=== PATIENT | female | born 1980 | race Caucasian/White ===

== ENCOUNTER 2023-11-25 12:18 | Emergency (ER) | payer OTHER, SELFPAY ==
[2023-11-25] VITALS (11 sets, daily range): BP systolic 100–121; BP diastolic 73–77; PULSE 74–83; TEMP 36.7; O2SAT 100; BMI 20.8
--- NOTE | 2023-11-25 12:30 | ECG_ITS ---
[facility] Test Date: 2023-11-25 [facility] Department: Room: - Gender: Female Hand Ironer: : 1980 Requested By: Order Number: [id number] Reading MD: AMOS CASAS Measurements Intervals [place] Rate: 81 P: 39 VA: 104 QRS: 75 QRSD: 78 T: 60 QT: 340 QTc: 377 Interpretive Statements 1100 Sinus rhythm 2210 Short VA interval 9150 abnormal ECG No previous ECG available for comparison Electronically Signed On 11-26-2023 7:40:30 EDT by AMOS CASAS
--- NOTE | 2023-11-25 12:36 | ED.GENADUL1 ---
HPI HPI - General Adult General Chief complaint: Weakness Stated complaint: GENERAL WEAKNESS Time Seen by Provider: 11/25/23 12:35 History of Present Illness HPI narrative: Patient is a All systems are negative except as noted/marked. All systems reviewed and otherwise negative. Nurses note and vital signs reviewed and patient is not hypoxic. General: The patient appears well and in no apparent distress. Patient is resting comfortably on cart. Patient is not toxic, lethargic, or listless Skin: Warm, dry, no pallor noted. There is no rash noted. No petechiae, purpura. Head: Normocephalic, atraumatic Eye: Normal conjunctiva, no drainage, EOMI. PERRL Ears, Nose, Mouth, and Throat: oral mucosa is moist. Nares patent. Mouth without vesicles. Cardiovascular: Regular Rate and Rhythm, no murmur, gallop, rub Respiratory: Patient is in no distress, no accessory muscle use, lungs are clear to auscultation, no wheezing, rales or rhonchi Back: non-tender, no CVA tenderness bilaterally to percussion. No CT LS midline pain GI: no tenderness to palpation, no masses appreciated. No rebound, guarding, or rigidity noted. No distention Musculoskeletal: Patient has full range of motion of all of the extremities, no motor, sensory, or focal neurological deficits Neurological: A&O x4, normal speech Psychiatric: Cooperative Related Data Previous Rx's ?Medication ?Instructions ?Recorded hydroxyzine HCl 50 mg tablet 50 mg PO TID PRN itching #10 tabs 11/25/23 mupirocin 2 % topical ointment 1 applic topical TID 14 days #15 11/25/23 grams Allergies Allergy/AdvReac Type Severity Reaction Status Date / Time Penicillins Allergy Severe Verified 11/25/23 12:27 Sulfa (Sulfonamide Allergy Severe Verified 11/25/23 12:27 Antibiotics) Opioid HPI Opioid Management Most Recent Opioid Data: No Data to Display Exam Constitutional Vital Signs, click to edit/add: Last Vital Signs Temp 98.1 F 11/25/23 12:22 Pulse 78 11/25/23 13:28 Resp 20 11/25/23 13:28 BP 121/74 11/25/23 13:57 Pulse Ox 100 11/25/23 12:36 O2 Del Method Room Air 11/25/23 12:36 Course Vital Signs Vital signs: Vital Signs Temperature 98.1 F 11/25/23 12:22 Pulse Rate 83 11/25/23 12:22 Respiratory Rate 16 11/25/23 12:22 Blood Pressure 105/73 11/25/23 12:22 Pulse Oximetry 100 11/25/23 12:22 Oxygen Delivery Method Room Air 11/25/23 12:22 Temperature 98.1 F 11/25/23 12:22 Pulse Rate 78 11/25/23 13:28 Respiratory Rate 20 11/25/23 13:28 Blood Pressure 121/74 11/25/23 13:57 Pulse Oximetry 100 11/25/23 12:36 Oxygen Delivery Method Room Air 11/25/23 12:36 Medical Decision Making MDM Narrative Medical decision making narrative: EKG interpretation. Normal sinus rhythm 81 beats a minute. Normal axis deviation. No acute ST elevation, no acute ectopy. Q waves noted ECG Data Attestation: I personally reviewed and interpreted this ECG as follows: (EKG interpretation. Normal sinus rhythm at 81 beats a minute. Normal axis deviation. No acute ST elevation, no acute ectopy. QTc of 377) Discharge Plan Discharge Stand Alone Forms: Portal Instructions Chief Complaint: Weakness Clinical Impression: Rash and nonspecific skin eruption, Irritation, nose Patient Disposition: Home, Self-Care Time of Disposition Decision: 13:50 Condition: Fair Prescriptions / Home Meds: New mupirocin 2 % ointment 1 applic topical TID 14 Days Qty: 15 0RF hydroxyzine HCl 50 mg tablet 50 mg PO TID PRN (Reason: itching) Qty: 10 0RF Print Language: Kinyarwanda Instructions: MRSA (Methicillin-Resistant Staphylococcus Aureus) (ED), Dermatitis (ED) Additional Instructions: Continue using your antitch/rash cream. Start using Pepcid 20 mg twice a day. Start using Vistaril/hydroxyzine/Atarax to 3 times a day as needed for rash, agitation or burning. Follow-up with your PCP Use antibiotic ointment 3 times a day for the next 1 to 2 weeks to the right nostril Referrals: Physician,Non-Staff, MD [Primary Care Provider] - 1 week Discharge Date/Time: 11/25/23 14:04
== END 2023-11-25 14:04 | disposition home or self-care (01) ==
PROVIDERS: Emergency Provider Emergency Medicine
DX: R21 Rash and other nonspecific skin eruption (principal); J34.9 Unspecified disorder of nose and nasal sinuses
CPT/HCPCS: 93005; 99283

== ENCOUNTER 2024-05-15 16:27 | Emergency (ER) | payer OTHER, SELFPAY ==
[2024-05-15 16:30] VITALS: BP 105/67; PULSE 89; TEMP 37.1; O2SAT 99; BMI 21.2
--- NOTE | 2024-05-15 16:45 | CT_ITS ---
The [address] [address] Patient Name: NEVA FRANCO MRN: [facility]:[id number] date: 1980 Sex: F Assigned Patient Location: ER Current Patient Location: ER Accession/Order Number: [id number] Exam Date: 05/15/2024 16:54 Report Date: 05/15/2024 17:42 At the request of: GASTON VALDEZ Procedure: CT abdomen pelvis wo con CT ABDOMEN/PELVIS WITHOUT IV CONTRAST. INDICATION: Right abd, flank pain COMPARISON: There are no other studies available for comparison. TECHNIQUE: Contiguous axial images were obtained from the lung bases to the pelvic floor without intravenous or oral contrast. Coronal and sagittal reformations are provided. FINDINGS: LOWER LUNGS: Clear. LIVER/BILIARY TREE: No discrete lesion. No intrahepatic ductal dilatation. GALLBLADDER: Status post cholecystectomy. CBD: Normal CBD. SPLEEN: Normal in size. PANCREAS: No appreciable peripancreatic fluid. No pancreatic ductal dilatation. No discrete lesion. ADRENALS: Normal. KIDNEYS: No hydronephrosis. No radiopaque calculus. STOMACH AND BOWEL: Stomach is unremarkable. No dilated bowel loops. No bowel wall thickening. APPENDIX: Not well-visualized. PERITONEAL CAVITY: There is trace free fluid in the pelvis.. No fat stranding. ABDOMINAL WALL: No subcutaneous stranding. No subcutaneous fluid collection. LYMPH NODES: No mesenteric or retroperitoneal lymphadenopathy by CT criteria. ABDOMINAL AORTA: No aneurysm. PELVIS: No acute abnormality. Status post hysterectomy. MUSCULOSKELETAL: No acute osseous abnormality. CT/CT abdomen pelvis wo con IMPRESSION: No acute abnormality in the abdomen or pelvis. No obstructive uropathy. Electronically authenticated by: FEDE PASTRANA Date: 05/15/2024 17:42
--- NOTE | 2024-05-15 16:45 | ED.ABDPAIN1 ---
HPI - Abdominal Pain General Chief Complaint: Abdominal Pain Stated Complaint: Abdominal Pain Time Seen by Provider: 05/15/24 16:44 Source: patient Mode of arrival: walk-in History of Present Illness HPI narrative: 44 year old female presents to the ED for right abd and flank pain, pressure with urination, nausea. Onset was 2-3 days ago. Denies fever, chills, emesis, dysuria, hematuria. Reports hx kidney stones, UTIs. She has had an appendectomy, cholecystectomy, hysterectomy. Reports previous surgery on the right ureter. Related Data Home Medications ?Medication ?Instructions ?Recorded ?Confirmed azelastine 0.05 % eye drops 1 drp ophthalmic (eye) BID 05/15/24 05/15/24 clobetasol 0.05 % topical ointment 1 applic topical BID 05/15/24 05/15/24 estradiol 0.075 mg/24 hr 1 patch transdermal .twice a wk 05/15/24 05/15/24 semiweekly transdermal patch fluoride (sodium) 1.1 % dental 1 applic dental BID 05/15/24 05/15/24 cream (Denta 5000 Plus) montelukast 10 mg tablet 10 mg PO DAILY 05/15/24 05/15/24 tacrolimus 0.1 % topical ointment 1 applic topical BID 05/15/24 05/15/24 Allergies Allergy/AdvReac Type Severity Reaction Status Date / Time Penicillins Allergy Severe Verified 11/25/23 12:27 Sulfa (Sulfonamide Allergy Severe Verified 11/25/23 12:27 Antibiotics) Review of Systems ROS Constitutional Denies: fever or chills Cardiovascular Denies: chest pain Respiratory Denies: shortness of breath Gastrointestinal Reports: abdominal pain and nausea; Denies: vomiting or diarrhea Genitourinary Denies: painful urination, urinary frequency, urinary urgency or blood in urine Musculoskeletal Reports: back pain; Denies: neck pain Integumentary/Breast Denies: rash Neurological Denies: numbness in extremities or weakness in extremities PFSH PFSH Social History Little interest or pleasure in doing things: not at all Feeling down, depressed, or hopeless: not at all Exam Constitutional Vital Signs, click to edit/add: Last Vital Signs Temp 98.7 F 05/15/24 16:30 Pulse 89 05/15/24 16:30 Resp 18 05/15/24 16:30 BP 105/67 05/15/24 16:30 Pulse Ox 99 05/15/24 16:30 Common normals: no apparent distress and oriented x3 General appearance: cooperative Eye Common normals: conjunctivae normal and no scleral icterus Neck & C-Spine Common normals: supple Respiratory Common normals: normal respiratory effort Effort & inspection: able to speak in complete sentences and symmetric chest movement Cardio Common normals: regular rate and regular rhythm GI Common normals: Normal to inspection, nondistended, normoactive bowel sounds present and soft to palpation Palpation: tender Details: RLQ Common normals: no CVA tenderness Neuro Common normals: oriented x3 and moves all extremities Sensorium/orientation: awake and alert Speech: speech normal Course Vital Signs Vital signs: Vital Signs Temperature 98.7 F 05/15/24 16:30 Pulse Rate 89 05/15/24 16:30 Respiratory Rate 18 05/15/24 16:30 Blood Pressure 105/67 05/15/24 16:30 Pulse Oximetry 99 05/15/24 16:30 Temperature 98.7 F 05/15/24 16:30 Pulse Rate 89 05/15/24 16:30 Respiratory Rate 18 05/15/24 16:30 Blood Pressure 105/67 05/15/24 16:30 Pulse Oximetry 99 05/15/24 16:30 MDM - Abdominal Pain MDM Narrative Medical decision making narrative: CBC, CMP, lipase, and urinalysis were unremarkable. CT scan was negative for acute findings. She was medicated with Toradol here. She was driving which limited her pain treatment options here. Follow up with pcp for a recheck, further evaluation and treatment. Differential Diagnosis Differential diagnosis: Likely abdominal pain, calculus of kidney, small bowel obstruction and other (UTI) Medical Records Attestation: I reviewed the patient's medical records. Lab Data Attestation: I reviewed the patient's lab results. Labs: Lab Results 05/15/24 Range/Units 16:40 WBC 10.6 (4.0-11.0) 10^3/uL RBC 4.01 L (4.20-5.40) 10^6/uL Hgb 12.8 (12.0-16.0) g/dL Hct 38.6 (36.0-48.0) % MCV 96.3 (81.0-99.0) fL MCH 31.9 (26.7-34.0) pg MCHC 33.2 (29.9-35.2) g/dL RDW 12.8 (11.0-15.0) % Plt Count 248 (150-450) 10^3/uL MPV 11.2 (9.5-13.5) fL Neut % (Auto) 78.3 H (43.0-75.0) % Lymph % (Auto) 14.8 L (20.5-60.0) % [place] % (Auto) 5.0 (1.7-12.0) % Eos % (Auto) 1.2 (0.9-7.0) % Baso % (Auto) 0.4 (0.2-2.0) % Neut # (Auto) 8.3 H (1.4-6.5) 10^3/uL Lymph # (Auto) 1.6 (1.2-3.8) 10^3/uL [place] # (Auto) 0.5 (0.3-0.8) 10^3/uL Eos # (Auto) 0.1 (0.0-0.7) 10^3/uL Baso # (Auto) 0.0 (0.0-0.1) 10^3/uL Abs Immat Gran (auto) 0.03 (0.00-0.03) 10^3/uL Imm/Tot Granulo (auto) 0.3 (0.0-0.5) % Sodium 138 (136-145) mmol/L Potassium 3.5 (3.5-5.1) mmol/L Chloride 103 (98-107) mmol/L Carbon Dioxide 26.8 (21.0-32.0) mmol/L Anion Gap 11.7 BUN 9.0 (7.0-18.0) mg/dL Creatinine 0.77 (0.55-1.02) mg/dL Est GFR ( Amer) >60 (>=60 mL/min/1.73m^2) Est GFR (Non-Af Amer) >60 (>=60 mL/min/1.73m^2) BUN/Creatinine Ratio 11.7 Glucose 122 H (74-106) mg/dL Calcium 8.5 (8.5-10.1) mg/dL Total Bilirubin 1.0 (0.2-1.0) mg/dL AST 20 (15-37) U/L ALT 28 (14-59) U/L Alkaline Phosphatase 72 (46-116) U/L Total Protein 6.9 (6.4-8.2) g/dL Albumin 3.6 (3.4-5.0) g/dL Globulin 3.3 g/dL Albumin/Globulin Ratio 1.1 Lipase 37.0 (16.0-77.0) U/L Urine Color Lt. yellow (YELLOW) Urine Clarity Clear (CLEAR) Urine pH 6.0 (5.0-9.0) Ur Specific [place] <=1.005 A (1.005-1.025) Urine Protein Negative (NEG/TRACE) mg/dL Urine Glucose (UA) Negative (NEGATIVE) mg/dL Urine Ketones Negative (NEGATIVE) mg/dL Urine Occult Blood Negative (NEGATIVE) Urine Nitrite Negative (NEGATIVE) Urine Bilirubin Negative (NEGATIVE) Urine Urobilinogen 0.2 (0.2-1.0) EU/dL Ur Leukocyte Esterase Negative (NEGATIVE) Discharge Plan Discharge Chief Complaint: Abdominal Pain Clinical Impression: Abdominal pain Patient Disposition: Home, Self-Care Time of Disposition Decision: 17:49 Condition: Good Mode of Transportation: Private Vehicle Prescriptions / Home Meds: No Action azelastine 0.05 % drops 1 drp OPHTHALMIC (EYE) BID clobetasol 0.05 % ointment 1 applic TOPICAL BID estradiol 0.075 mg/24 hr patch semiweekly 1 patch transdermal .twice a wk fluoride (sodium) [Denta 5000 Plus] 1.1 % cream 1 applic dental BID montelukast 10 mg tablet 10 mg PO DAILY tacrolimus 0.1 % ointment 1 applic TOPICAL BID Print Language: Portuguese Instructions: Abdominal Pain (ED) Additional Instructions: Return to the ER for worsening symptoms. Referrals: Patricia Segura NP [Primary Care Provider] - 1 week
[2024-05-15 16:52] LABS: Basophils Percent Auto 0.4 % (0.2-2.0); Eosinophils Absolute Auto 0.1 10^3/uL (0.0-0.7); Eosinophils Percent Auto 1.2 % (0.9-7.0); Hematocrit 38.6 % (36.0-48.0); Hemoglobin 12.8 g/dL (12.0-16.0); Immature Granulocytes Abs Auto 0.03 10^3/uL (0.00-0.03); Immature Granulocytes Pct Auto 0.3 % (0.0-0.5); Lymphocytes Absolute Auto 1.6 10^3/uL (1.2-3.8); Lymphocytes Percent Auto 14.8 % (20.5-60.0); Mean Corpuscular HGB Conc 33.2 g/dL (29.9-35.2); Mean Corpuscular Hemoglobin 31.9 pg (26.7-34.0); Mean Corpuscular Volume 96.3 fL (81.0-99.0); Mean Platelet Volume 11.2 fL (9.5-13.5); Monocytes Absolute Auto 0.5 10^3/uL (0.3-0.8); Neutrophils Absolute Auto 8.3 10^3/uL (1.4-6.5); Neutrophils Percent Auto 78.3 % (43.0-75.0); Platelet Count 248 10^3/uL (150-450); Red Blood Count 4.01 10^6/uL (4.20-5.40); Red Cell Distribution Width 12.8 % (11.0-15.0); White Blood Count 10.6 10^3/uL (4.0-11.0)
[2024-05-15 16:53] LABS: Bilirubin Urine NEGATIVE (NEGATIVE); Blood Urine NEGATIVE (NEGATIVE); Clarity Urine CLEAR (CLEAR); Color Urine LT. YELLOW (YELLOW); Glucose Urine UA NEGATIVE (NEGATIVE); Ketones Urine NEGATIVE (NEGATIVE); Leukocyte Esterase Urine NEGATIVE (NEGATIVE); Nitrite Urine NEGATIVE (NEGATIVE); Protein Urine NEGATIVE (NEG/TRACE); Specific Gravity Urine <=1.005 (1.005-1.025); Urobilinogen Urine 0.2 EU/dL (0.2-1.0)
[2024-05-15] MEDS: KETOROLAC TROMETHAMINE 30 MG/ML VIAL IVP (16:54)
[2024-05-15 16:57] LABS: Urine Microscopic Indicated NO
[2024-05-15 17:07] LABS: Alanine Aminotransferase 28 U/L (14-59); Albumin Globulin Ratio 1.1; Albumin Level 3.6 g/dL (3.4-5.0); Alkaline Phosphatase 72 U/L (46-116); Anion Gap 11.7; Aspartate Amino Transferase 20 U/L (15-37); BUN Creatinine Ratio 11.7; Calcium 8.5 mg/dL (8.5-10.1); Carbon Dioxide 26.8 mmol/L (21.0-32.0); Chloride 103 mmol/L (98-107); Estimated GFR (African America >60 (>=60 mL/min/1.73m^2); Estimated GFR (Non-African Ame >60 (>=60 mL/min/1.73m^2); Globulin 3.3 g/dL; Glucose 122 mg/dL (74-106); Potassium 3.5 mmol/L (3.5-5.1); Sodium 138 mmol/L (136-145); Total Protein 6.9 g/dL (6.4-8.2)
== END 2024-05-15 17:59 | disposition home or self-care (01) ==
PROVIDERS: Nurse Practitioner Family; Emergency Provider Emergency Medicine; PCP Nurse Practitioner Family
DX: R10.9 Unspecified abdominal pain (principal); Z87.442 Personal history of urinary calculi; Z87.440 Personal history of urinary (tract) infections; Z90.49 Acquired absence of other specified parts of digestive tract; Z90.710 Acquired absence of both cervix and uterus
CPT/HCPCS: 36415; 74176; 80053; 81003; 83690; 85025; 96374; 99285; J1885